=== PATIENT | male | born 1950 | race Caucasian/White ===

== ENCOUNTER → 2017-04-02 | Outpatient (CLI) | payer OTHER ==
[~2017-04-02] VITALS: Ht 180.3 cm; Wt 86.1 kg
[~2017-04-02] MED LIST: ASPIR 8181 MG PO; CENTRUM SILVER1 EAC2 PO; CLONAZEPAM 1 MG1 M1 PO; COUMADIN7.5 MG PO; CYMBALTA60 MG PO; ENOXAPARIN40 MG/0.1 SUBQ; GABAPENTIN100 MG PO; HYDROCODON-ACE1 EAC5 PO; HYDROCODONE-APA1 TA1 PO; LEVOTHYROXIN0.075 MG PO; LIPITOR 20 MG T20 M1 PO; NEURONTIN 300300 M1 PO; NEURONTIN300 MG PO; OXYCODONE HCL E10 MG PO; OXYCODONE-ACET1 EAC2 PO; OXYCONTIN20 M1 PO; PERCOCET 10-321 EACH PO; SINGULAIR 10 MG10 M1 PO; VENTOLIN HFA 1818 GM INH
--- NOTE | ~2017-04-02 | HPC ---
[facility] [address] [place] [address] PAIN MANAGEMENT CONSULTATION Name: CARLOS RAUSCH Room #: REG [place] Burk#: [id number] Admission: 04/02/17 Attend Phys: Lincoln George MD Discharge: Date of : 50 Report #: [id number] THIS REPORT FOR: //name// CC: MORGAN George DATE OF SERVICE: 04/02/2017 Followup visit for chronic intractable neck pain, occipital headaches and bilateral lower extremity pain with burning, numbness and tingling. I last saw the patient exactly 1 year ago today. He had had a couple of epidural injections and facet injections in attempt to treat severe neck pain and occipital headaches. Pain relief was short lived with both injections and he was discharged from our clinic on that day with some medication management recommendations. Much has happened in the interim. In July, after a consultation with Dr. Powell at , the patient underwent surgery. He had an anterior cervical diskectomy and fusion of C3-C4. He recovered from that surgery and felt a little bit better in the first week, but then suffered a pulmonary embolus. He had actually had a vena cava filter placed prior to surgery because of history of deep venous thrombosis and it was removed. After it was removed, he had severe headaches and fell. He was anticoagulated at the time. He had 1 severe leg injury when he tripped at a parking lot. He had to have a plastic surgeon close a severe laceration on the back of his right knee. 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 He was discovered to have had a small cerebral bleed. This was allowed to recover. 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 He says he has actually been riding on a tractor mowing [place]. This is hard on him and he is having pain with these activities. Vena cava filter has been replaced once again. He is becoming more and more debilitated by his pain. He says that he has severe 7/10 pain in his head that radiates from his occiput forward into the frontal region and involves his neck, shoulders and then he hurts all over, mostly in his legs and his back. He says that his legs feel as though they are swollen and achy at all times. His feet burn. He has had some other symptoms in his upper extremities with shakiness, tremor and it has been difficult for him to write due to the tremor. He used to work out on a treadmill, but has stopped doing that and his , Loni, who is with him today says that many days he is just spending lying in bed. He is up and down at night, so he is not getting a good circadian rhythm. This is all limiting his activity more and more. 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 Maldonado. Notes from Dr. Maldonado's office several months ago suggested he has an undefined rheumatologic symptom with diffuse body aches and fatigue and headaches. Medication for treatment has primarily been focused on antidepressants and antiseizure medicines. In the past, he was hyperreflexic and this is noted again today. This will be discussed below. CURRENT MEDICATIONS: Multivitamins, oxycodone 10/325 one tablet at bedtime only, gabapentin 600 mg morning and evening, Coumadin 7.5 mg, levothyroxine 0.075, Singulair 10 mg, clonazepam 1 mg at bedtime, aspirin 81 mg, albuterol. ALLERGIES: None. PAST MEDICAL HISTORY: Significant for hypertension, coronary artery disease status post stent placement. REVIEW OF SYSTEMS: He has some dyspnea on exertion, lightheadedness at times, dizziness, extreme fatigue associated with pain, easy bleeding and bruising. PHYSICAL EXAMINATION: He is pleasant, alert and oriented today. Memory seems to be good. Blood pressure is 113/81, heart rate 67, respirations 14, BMI is 26.5. He is able to move easily from a sitting to standing position, but walks with a stiff gait. There is mild spasticity noted in his gait. His chest is clear. His cardiac rhythm is regular. Examination of the neck reveals decreased range of motion with lateral tilt and rotation. Flexion and extension are performed without too much difficulty. This exacerbates symptoms. He has a small swollen area over the internal jugular where a sheath was recently placed to remove his vena cava filter. Examination of the upper extremities reveals normal strength and sensation. Deep tendon reflexes are 2+ biceps, triceps and brachioradialis. Examination of reflexes in the lower extremity reveals clonus at the knees bilaterally and hyperreflexia at the ankles. There is some hyperalgesia to light touch. No focal weakness. X-RAYS AVAILABLE: None. IMPRESSION: 1. Cervicalgia with occipital headaches, status post act anterior cervical discectomy and fusion. History of cervical spinal stenosis. I believe he is myelopathic with the hyperreflexia noted in the lower extremities, the changes in his fine motor skills in his hands and with mild spasticity noted in his gait. 2. Chronic intractable pain. 3. Status post anterior cervical discectomy and fusion. [facility] [address] [place] [address] PAIN MANAGEMENT CONSULTATION Name: CARLOS RAUSCH Room #: REG [facility].#: [id number] Admission: 04/02/17 Attend Phys: Lincoln George MD Discharge: Date of : 50 Report #: [id number] RECOMMENDATIONS: I spent over 1 hour today in full evaluation with the patient with counseling and consultation regarding medication. I would like to make the following changes: 1. Taper off of gabapentin. 2. Begin Lyrica, increasing from initial dose of 150 and titrating upwards towards 300, perhaps as high as 450 depending on side effects. 3. I believe we should utilize small-dose opioid medication under strict management and with careful instructions. The opioid crisis was addressed thoroughly. The importance of using medications as prescribed by the physician was reviewed as well. He has some oxycodone 10 tablets at home, I would like him to take 5 mg up to 4 times a day. Duration of action of the oxycodone tablet should be somewhere between 4 and 6 hours. 4. Consider occipital nerve blocks for diagnostic purposes. I do not want to put him through any other procedure, but he might be a candidate for occipital stimulation, which I have seen helpful in about 50% of appropriately selected patients. With his coagulopathy I would be careful about any additional procedure at this time and I wanted to try medication management. 5. Follow up in 1 week. By: [id number] Lincoln George MD /nt
[2017-04-02 11:04] VITALS: BP 113/81
[2017-04-02 11:18] LABS: INR 1.3; PROTIME 13.7 Seconds (9.3-11.4)
== END | disposition home or self-care (01) ==
LOC: PAIN 08:26
PROVIDERS: Anesthesiology Pain Medicine
DX: M54.2 Cervicalgia (principal); M54.81 Occipital neuralgia; G89.29 Other chronic pain; I10 Essential (primary) hypertension; I25.10 Atherosclerotic heart disease of native coronary artery without angina pectoris; Z95.5 Presence of coronary angioplasty implant and graft; Z98.890 Other specified postprocedural states; Z79.82 Long term (current) use of aspirin; Z79.899 Other long term (current) drug therapy; Z79.01 Long term (current) use of anticoagulants

== ENCOUNTER → 2017-06-17 | Outpatient (CLI) | payer OTHER ==
[~2017-06-17] VITALS: Ht 180.3 cm; Wt 84.8 kg
[~2017-06-17] MED LIST changes: +LYRICA 50 MG50 MG PO; +LYRICA 75 MG CA75 MG PO; +WARFARIN SODIUM5 MG PO
--- NOTE | ~2017-06-17 | HPC ---
[facility] [address] [address] PAIN MANAGEMENT CONSULTATION Name: CARLOS RAUSCH Room #: REG JOSE Rajesh.#: [id number] Admission: 06/17/17 Attend Phys: Lincoln George MD Discharge: Date of : 50 Report #: [id number] THIS REPORT FOR: //name// CC: Shaji George DATE OF SERVICE: 06/17/2017 Followup visit for chronic neck pain with myelopathy. HISTORY OF PRESENT ILLNESS: The patient is here today in the clinic with his . He is here to discuss his ongoing pain. He looks better, he has been working out. He has gained some weight. He had lost quite a bit. He is walking 80 minutes on the treadmill now. He continues to have a daily headache about 3.5. It is radiating in frontal as well as in his occiput. It is worse when the day goes on and he cannot lay down on a pillow without severe pain. He has had some trigger points, but they do not last. We talked about botox and I am going to talk to Stacey Maria about perhaps performing these for him. MEDICATIONS: Review includes Coumadin, oxycodone, multivitamins, Cymbalta, Singulair, Synthroid, clonazepam, aspirin, and Ventolin. ALLERGIES: None. PHYSICAL EXAMINATION: GENERAL: Looks a lot better, just his eyes looks more hopeful and optimistic. VITAL SIGNS: His blood pressure 103/75, heart rate 78. He is 5 feet 11 inches, 187 pounds with a BMI of 26.1. PQRS REVIEW: He does not smoke. He is on an opioid agreement and understands the opioid crisis, the CDC guidelines and his written agreement. Periodic drug screening will be performed as necessary. His weight is well controlled. He is no longer under treatment for hypertension, but is on a blood thinner. IMPRESSION: 1. Chronic intractable cervicalgia and likely myelopathy. 2. Intractable pain. 3. Management of high risk medication. 4. Depression, much improved. PLAN: I will discuss Botox with Stacey Ortegamez and make a call back to the patient. By: [id number] Lincoln George MD /nt
[2017-06-17 12:39] VITALS: BP 103/75
== END ==
LOC: PAIN 07:12
DX: G89.29 Other chronic pain (principal); M54.2 Cervicalgia; F32.89 Other specified depressive episodes; Z79.899 Other long term (current) drug therapy

== ENCOUNTER → 2017-09-11 | Outpatient (CLI) | payer OTHER ==
[~2017-09-11] VITALS: Ht 180.3 cm; Wt 83.0 kg
[~2017-09-11] MED LIST changes: +CYMBALTA30 MG PO; +VIAGRA50 MG PO
--- NOTE | ~2017-09-11 | HPC ---
[facility] [place] [address] [place] [address] PAIN MANAGEMENT CONSULTATION Name: CARLOS RAUSCH Room #: REG JOSE Rajesh.#: [id number] Admission: 09/11/17 Attend Phys: Lincoln George MD Discharge: Date of : 50 Report #: [id number] THIS REPORT FOR: //name// CC: Shaji George DATE OF SERVICE: 09/11/2017 DATE OF REGISTRATION: 09/11/2017 Followup visit for chronic cervicalgia and myelopathy. The patient returns to pain clinic today for ongoing pain. He is on a combination of Lyrica 75 mg 4 times daily and oxycodone 5 mg 4 times daily. We have decided to change that dose to oxycodone 10 mg 3 times daily, essentially what he can do is to use a full tablet twice a day and split the third tablet to 5 mg. Overall, this will increase his morphine mg equivalency from 30-45 with the additional 10 mg of oxycodone a day. He has had opioid related side effects including endocrinopathy. He asked me about sexual functioning while on medication and also due to his pain. He has tried Viagra, but is unbelievably expensive. I have referred him to a [facility] where he can get generic Viagra for under $50 for 20 tablets. A prescription was written for 20 tablets and refills. He is discouraged by his continuing pain. Intensity of pain is as high as a 6 even on a good day. His impact of pain score is high in the range of 35-40. It interferes evenly with walking mood, normal work, relationships with others, sleep and enjoyment of life. He is at moderate risk for addiction to medications, so we will watch him carefully. Most of it; however, is due to a family history. No personal history of substance abuse or other psychological disorder. I think quite honestly that there is very little risk of addiction and the patient is attentive to that. We have discussed the opioid risks well documented in the [place] [facility] and will remain vigilant. I think he is a candidate for an intrathecal pump and I spent 20 minutes or so today reviewing placement and management. I will discuss this further with him in future visits. I believe he has some degree of spasticity based on his physical exam features. PHYSICAL EXAMINATION: Moves from a sitting to standing position, ambulates with a bit of a rigid gait. He has ongoing pain in his neck with forward flexion, extension and rotation. He has pain across his low back. Straight leg raising causes aching sensation and throbbing. Deep tendon reflexes in the lower extremity are 3-4+ with 2 beats of clonus noted in the right leg. [facility] [address] [place] [address] PAIN MANAGEMENT CONSULTATION Name: CARLOS RAUSCH Room #: REG JOSE Burk#: [id number] Admission: 09/11/17 Attend Phys: Lincoln George MD Discharge: Date of : 50 Report #: [id number] IMPRESSION: Cervicalgia with myelopathy. RECOMMENDATION: Continue on his medications as prescribed and consider intrathecal pump in the future. I will share his story with Dr. Uriah Guadalupe who I will ask to assist with placement of intrathecal pump should we need to do so. I have reviewed all his medications and he remains on a blood thinner because of DVT. We would have to work carefully around that if we decided to place an intrathecal pump. Total time with the patient is 35 minutes. <ELECTRONICALLY SIGNED> By: Lincoln George MD 10/07/17 1408 [id number] 14 Lincoln George MD /nt
[2017-09-11 13:07] VITALS: BP 147/97
== END ==
LOC: PAIN 07:10
DX: M54.2 Cervicalgia (principal); M79.1 Myalgia; G89.29 Other chronic pain

== ENCOUNTER → 2017-12-23 | Outpatient (CLI) | payer OTHER ==
[~2017-12-23] VITALS: Ht 180.3 cm; Wt 85.3 kg
[~2017-12-23] MED LIST changes: -CYMBALTA30 MG PO
--- NOTE | ~2017-12-23 | HPC ---
[facility] [address] [place] [address] PAIN MANAGEMENT CONSULTATION Name: CARLOS RAUSCH Room #: REG JOSE Rajesh.#: [id number] Admission: 12/23/17 Attend Phys: Lincoln George MD Discharge: Date of : 50 Report #: [id number] THIS REPORT FOR: //name// CC: Shaji George DATE OF SERVICE: 12/23/2017 DATE OF REGISTRATION: 12/23/2017 Followup visit for diffuse pain. The patient is here today in the clinic with his , Radha. I spent about 25 minutes with them today discussing his symptoms, diagnosis and treatment. I had previously discussed his case over the phone with Dr. Shaji Maldonado. The patient continues to have what he describes as "pain all over." He describes discomfort in his neck, shoulders pain that radiates into his arms with a constant, aching, throbbing sensation. He has some discomfort throughout the torso as well that is diffuse and throbbing and then below the waist he has bilateral leg pain radiating into his feet with burning. He describes his pain intensity is 7, it worsens as the day goes on. It is made worse with most activities. Several months ago, he was nearly bedfast. He developed a blood clots and pulmonary embolus, was started on anticoagulation therapy. We have also encouraged activity by increasing the use of stronger pain medication, which he takes reluctantly, but gratefully. It does provide some measure of relief and allows him to be more active. We discussed his diagnosis. I reviewed the available studies that we have and my last MRI was from November 2015 showing diffuse spondylosis. At that time, he had moderate to severe canal stenosis at C3-C4 and there was no intrinsic cord signal or change. I have, however, been concerned over the years that he has had progressive pain related to myelopathy given the widespread nature of his pain and neuropathic burning complaints. Further exploring diagnosis and interesting piece of information that I had not obtained in previous visits was volunteered today about his daughter. Several years ago, she had similar diffuse body aches and pains. She was seen by multiple physicians throughout the [place] area and was given the diagnosis of Lyme's disease. She was seen at the [facility] where the diagnosis was of a functional nature. The patient pointed to his head when he described their diagnosis implicating psychological issues as the underlying cause. [facility] [address] [place] [address] PAIN MANAGEMENT CONSULTATION Name: ENGLISHCARLOS Vanesa Room #: REG JOSE Burk#: [id number] Admission: 12/23/17 Attend Phys: Lincoln George MD Discharge: Date of : 50 Report #: [id number] They then sought out a physician under recommendation from a friend located in [place], [place]. With some desperation, they took their 18-year-old daughter to see him, what sounds as though she underwent some sort of plasmapheresis circulation therapy. Remarkably, she recovered and they described her as nearly normal today. Well, I am not saying that the patient is suffering the same etiology, I find it curious that her father is suffering from similar diffuse pain. Could this be Lyme's disease or some sort of systemic disease rather than myelopathy? I have suggested the [facility] Neurology Department for another opinion, but given their poor experience previously, they were a bit reluctant to consider that option. After some discussion about the testing that could be performed in the tertiary center, I think they have agreed that they may once again take a trip to [place], [place]. I will try to help and arrange an entry into the clinic with my friend, Dr. Johny Franklin in the Department of Pulmonary Medicine who can then help get the patient into appropriate consultants for a complete workup. A final discussion centered around his symptoms and symptom management which followed a physical exam. PHYSICAL EXAMINATION: GENERAL: He is a bit flat of affect. His voice is stronger, still a bit hesitant. HEENT: Reveals pupils to be equal, round, reactive to light. EOMs are intact. NECK: His neck range of motion is limited from previous surgery. He has tenderness posteriorly. CARDIAC: Rhythm is regular. CHEST: Clear. MUSCULOSKELETAL EXAMINATION: Reveals mild diffuse myofascial tenderness and some arthralgias of the shoulder and tenderness of the elbows bilaterally. He has tenderness also of the legs. Sensation to pinprick is intact. Deep tendon reflexes are 2+ in the upper extremities and symmetrical right to left and he remains hyporeflexic in the lower extremities with knee jerk reflexes at 3, ankle jerk reflexes 2-3+. IMPRESSION: 1. Chronic intractable pain of a diffuse nature, possibly myelopathy. 2. Management of high risk medications. PLAN: 1. Continue with Dr. Maldonado's plan to increase his Cymbalta to 120 mg as discussed over the phone. 2. Continue oxycodone 10/325 three times daily, this is an MME of 45. 3. Continue Lyrica 75 mg t.i.d. [facility] [address] [place] [address] PAIN MANAGEMENT CONSULTATION Name: CARLOS RAUSCH Room #: MIR Mena.#: [id number] Admission: 12/23/17 Attend Phys: Lincoln George MD Discharge: Date of : 50 Report #: [id number] 4. Follow up in the pain clinic in 2 months. I will make a call to the [facility] to arrange for his possible consultation there. By: [id number] Lincoln George MD /nt
[2017-12-23 13:59] VITALS: BP 118/85
== END ==
LOC: PAIN 06:44
DX: Z09 Encounter for follow-up examination after completed treatment for conditions other than malignant neoplasm (principal); G89.4 Chronic pain syndrome; Z79.899 Other long term (current) drug therapy

== ENCOUNTER → 2018-04-01 | Outpatient (CLI) | payer OTHER ==
[~2018-04-01] VITALS: Ht 180.3 cm; Wt 84.8 kg
[~2018-04-01] MED LIST changes: +CYMBALTA30 MG PO
--- NOTE | ~2018-04-01 | HPC ---
[facility] [address] [address] PAIN MANAGEMENT CONSULTATION Name: CARLOS RAUSCH Room #: REG JOSE Bhargavi#: [id number] Admission: 04/01/18 Attend Phys: Lincoln George MD Discharge: Date of : 50 Report #: [id number] THIS REPORT FOR: //name// CC: [facility] Lincoln George DATE OF SERVICE: 04/01/2018 Followup visit for chronic intractable pain. The patient is here today with his , Mely. When I last saw him on 12/23/2017, we had discussed the possibility of a second opinion. We talked about the [facility] Department of Neurology and I offered to refer him there. He also sought out a physician from a friend located in [place], [place] and received nearly [address] [facility] in [place]. While there, there was an effort to taper him off of his current medications, which I support and he also received prolotherapy along his neck. He feels that this has improved his pain. His pain intensity is reduced today at a level of 2 when I last saw him. His pain intensity was 7. Overall, he just looks better. He has had a slight tremor in his voices, had a slight waiver. He has had a look in his eye that suggests a sense of hopelessness. He seems more positive today. I reviewed my notes from last visit and compared my impressions from today with before. He is more flat in his affect at last visit. One of the questions that arose was his low testosterone level. He is 67 years of age and the course testosterone will naturally be lower. We also know, however, that medications that he is taking can also lower testosterone, particularly the opioids. We talked about testosterone replacement which I usually do not order, but I am willing to do so and I will seek out the appropriate initiating dose for him and the appropriate and best choice for supplement. I noted that there are injections, creams and patches. Since I do not typically prescribe them, I will need to do some homework before I do that and they were happy with that. They have not established with a new primary care physician since Dr. Maldonado retired a few months ago. Since Dr. Lopez's prolotherapy seems to have helped the patient's neck, they asked me about prolotherapy which I do not perform. I am well familiar with the technique and have done some research on that topic. It has some controversy in today's health care and I know there has been some reimbursement reluctance by third constitution party payers, but that certainly it does not define a procedure in this day and age. Insurance companies are reluctant to pay for just about anything. The longest practicing physician in [place] that I am aware of who has been a strong devotee of prolotherapy is Dr. Wicho Shipman, who I believe is still practicing in [facility]. I provided them with his number and they [facility] [address] [address] PAIN MANAGEMENT CONSULTATION Name: CARLOS RAUSCH Room #: REG JOSE Burk#: [id number] Admission: 04/01/18 Attend Phys: Lincoln George MD Discharge: Date of : 50 Report #: [id number] can certainly pursue a consultation with Dr. Shipman. 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 PHYSICAL EXAMINATION: Again, I think he looks better. His eyes are less anxious. His affect not as flat as before. He was more energetic. He smiled more during his visit today. His blood pressure is 118/85, heart rate 63, respirations 16. His BMI is nearly identical at 26.2, but his muscle mass seems better just with general observation. Color of the face is good. Still has some restrictions in the range of motion of his neck, but his voice is stronger and he has less of a tremor. He continues to have some decreased sensation in the lower extremities consistent with neuropathy/myelopathy. He has 2 cardiac stents as well and remains on Coumadin. All medications were reviewed and reconciled. We talked about tapering him at some point from Cymbalta. We will keep him on Lyrica 75 mg 3 times daily, at a slight reduction. He is tapering his oxycodone from a maximum of 30 mg a day, taken 3 times daily to 2 tablets of 10 and one half a tablet for a total of 25 mg a day or roughly 37 MME. I renewed his medications needed to carry him through the next month or two. I will be in contact by phone regarding his testosterone and the prolotherapy if there are others. They are also performed locally in [place]. By: [id number] Lincoln George MD /nt
[2018-04-01 11:08] VITALS: BP 116/79
== END ==
LOC: PAIN 06:55
DX: G89.4 Chronic pain syndrome (principal); M17.12 Unilateral primary osteoarthritis, left knee; Z72.89 Other problems related to lifestyle; Z79.899 Other long term (current) drug therapy

== ENCOUNTER → 2018-09-11 | Outpatient (CLI) | payer OTHER ==
[~2018-09-11] VITALS: Ht 180.3 cm; Wt 79.8 kg
[~2018-09-11] MED LIST changes: +CRESTOR10 MG PO
[2018-09-11 12:32] VITALS: BP 132/87
--- NOTE | 2018-09-11 12:39 | NUR ---
Pain Clinic Assessment: 1. History of Osteoarthritis: Left Lower Extremity History of Rheumatoid Arthritis: Not Applicable 2. Height: 5 ft. 11 in. 180.3 cm. Weight: 176.0 lb. oz. 79.833 kg. Patient's BMI: 24.6 3. Vital Signs: BP: 132/87 Pulse: 64 Resp: 16 Temp: 02 Sat: 99 ECG Mon: 4. Pain Intensity: 6 5. Fall Risk: Dizziness: N Needs help standing or walking: N Fallen in the last 3 months: Y Fall risk comments: 6. Patient on Blood Thinner: Warfarin (Coumadin) 7. History of Hypertension: N 8. Opioid Therapy greater than 6 weeks: Y Opiate Contract Signed: 09/11/17 9. Risk Assessment Tool Provided: 10-high 10. Functional Assessment Tool: 11. Recreational Drug Use: Never Drug Type: Tobacco Use: Never Smoker Tobacco Type: Amount or Packs/day: How Many Years: Alcohol Use: Yes Frequency: Special Occasions Quant:
--- NOTE | 2018-09-12 07:40 | HPC ---
[facility] [address] [place] [address] PAIN MANAGEMENT CONSULTATION Name: CARLOS RAUSCH Room #: REG [facility] Burk#: [id number] Admission: 09/11/18 ������������������ Attend Phys: Ashley Kaur Discharge: ������������������ Date of : 50 Report #: [id number] THIS REPORT FOR: //name// CC: Ashley Kaur [facility] DATE OF SERVICE: 09/11/2018 CHIEF COMPLAINT: Chronic intractable pain. HISTORY OF PRESENT ILLNESS: The patient returns to the pain clinic today. Our last visit with him was in March of 2018. He tells me that he has been able to decrease lot of his medicines that we had had him on and was doing fairly well until 2 weeks ago. He started having increasing headaches starting at the base of his neck, radiating towards the front of his head up his occipital area and even feels the pressure behind his eyes, tells me that he does have some pain that does go into his shoulders as well. His pain score today is 6/10. At that time, he started taking 15 mg of oxycodone that he had had from when we last saw him and he said it was able to help him sleep at night. He said he can manage during the day and then, his pain becomes so intense that he was not being able to sleep but this medicine has made him sleep better at night and then be able to function during the day. He would like a refill of his oxycodone. He tells me he does not need the Cymbalta or the Lyrica or the AndroGel. He had weaned himself off of those and did not think that they were very beneficial. He also tells me that he did fall in early August and had a fractured hip that has healed on its own. No surgery was required. Otherwise, he has had no changes in his medication history or medical history. ALLERGIES: no allergies. CURRENT MEDICATIONS: Oxycodone 10/325 one and half bedtime; Viagra as needed; Coumadin 5 mg daily, sliding scale of that based on INR; multivitamin daily; Singulair 10 mg daily; Synthroid 75 mcg daily; clonazepam 1 mg at bedtime; 81 mg aspirin and albuterol inhaler as needed. PQRS: 1. He has osteoarthritis in his lower extremities, hips and his neck. Denies rheumatoid arthritis. 2. Height 5 feet 11 inches, weight is 176 and BMI is 24. 3. Vital signs: Blood pressure 132/87, pulse is 64, respirations 16 and oxygen sat is 99. 4. Pain score 6/10. 5. Fall risk. Denies dizziness, does not need help, walking or standing, has fallen in the last 3 months and has sought out medical care. 6. The patient is on blood thinner of Coumadin. He denies any blood pressure medicines. [address] [address] PAIN MANAGEMENT CONSULTATION Name: ENGLISHCARLOS BRAN Room #: REG [facility] Bhargavi#: [id number] Admission: 09/11/18 ������������������ Attend Phys: Ashley Kaur Discharge: ������������������ Date of : 50 Report #: [id number] 7. Opioid therapy is greater than 6 weeks; therefore, an opioid signed contract is on the chart. 8. His risk assessment tool is high and his functional assessment is 40/70. 9. Recreational drug use, he denies. He is not a smoker and occasionally drinks alcohol. We did check the prescription monitoring system. The patient is filling medicines from his primary care doctor for his clonazepam and oxycodone most recently. No medications from our office since our last visit last fall. PHYSICAL EXAMINATION GENERAL: This is alert and orientated 68-year-old gentleman who appears his stated age or slightly younger. He is alert and orientated. His affect is appropriate. HEENT: Normocephalic and atraumatic. Extraocular eye muscles are intact. Mucous membranes are moist. His hearing is adequate. NECK: Complains of pain with range of motion that radiates from the shoulders that radiates through his occipital area into his forehead, tender to the touch at the base of his neck with some restrictions in his range of motion. MUSCULOSKELETAL: His general muscle strength is judged to be 5/5 in both upper and lower extremities in all groups. The patient walks with a normal gait. No tremors noted today in his voice. We reviewed the fact that opiate medications are being used to provide analgesia adequate to support activities of daily living, not attempting to achieve a specific pain score on the 0-10 Visual Analog Scale. The current opiate medications are providing sufficient analgesia to allow the patient to participate in activities of daily living. The patient is not exhibiting any aberrant behavior suggestive of drug diversion. The patient is not having any adverse reactions to medications. The patient is not suffering from daytime somnolence or mental acuity changes. The patient is managing opiate-induced constipation with appropriate yxri-qrl-vubdnuq agents and dietary considerations. The patient was counseled on concern for caution with operating a motor vehicle while using opiate medications. A physical exam was performed and the patient's functional status was evaluated. All patients with back pain were advised against the bed rest greater than 4 days and were advised to return to normal activities. Pain score assessment was noted and the treatment plan was reviewed with the patient. All current medications, both prescribed and OTC were reviewed and reconciled on the electronic medical record. Tobacco screening was accomplished and smoking cessation was advised when indicated. BMI was noted and diet/exercise modification was recommended for all patients following outside normal parameters. I reviewed with the patient today their responsibilities to safeguard prescription medications, reviewed their responsibility to utilize medications [facility] [address] [place] [address] PAIN MANAGEMENT CONSULTATION Name: ENGLISHCARLOS SOTOMAYOR Room #: REG [facility] M.Jahaira.#: [id number] Admission: 09/11/18 ������������������ Attend Phys: Ashley Kaur Discharge: ������������������ Date of : 50 Report #: [id number] only as prescribed by the physician. They are to seek and receive pain medications only from 1 physician group ( [facility]). They are to use 1 pharmacy and keep the clinic informed if they change pharmacies. Their responsibilities include making followup visits in a timely fashion and to avoid abrupt discontinuation of medication usage. Their responsibilities further include bringing their medications (bottles from the pharmacy with residual pills) to the visit for possible confirmation of pill counts and the patient understands it is their responsibility to submit to random drug screens to ensure both that the medications prescribed are present, and that no other controlled substances are present. All prescriptions provided today were generated electronically. ASSESSMENT: 1. Chronic intractable pain, neck pain. 2. Cervical neuralgia with myelopathy. PLAN: 1. We discussed treatment options with the patient today. The patient wishes to have a prescription of his oxycodone, which he had received in the past from us. He is currently taking 1-1/2 tablets of the 10 mg a day. We discussed lowest most effective dose. The patient will try to take less medicine and see how he does. He has not even tried the lower dose and he started at 1-1/2. This was able to afford him sleep, so he stayed on that dose for the past couple of weeks. The patient tells me that he will try half a pill and then one a pill or one and half pills but no more than one and half per night. Scripts given for oxycodone , #90. This may last the patient 1-2 months depending on how he is taking it. 2. The patient will be seen by Dr. George when he is running low on the medications and he will call for an appointment in a timely fashion. 3. The patient is seen with Dr. George and collaboration with his care today. ��������������������������������������������� <ELECTRONICALLY SIGNED> ���������������������������������������� By: Ashley Kaur ��������������������������������������������� 09/12/18 0740 [id number] Ashley Kaur /pierce
== END ==
LOC: PAIN 07:00
DX: M50.00 Cervical disc disorder with myelopathy, unspecified cervical region (principal); G89.4 Chronic pain syndrome; Z79.899 Other long term (current) drug therapy

== ENCOUNTER → 2018-12-16 | Outpatient (CLI) | payer OTHER ==
[~2018-12-16] VITALS: Ht 180.3 cm; Wt 84.9 kg
[2018-12-16 14:33] VITALS: BP 124/88
--- NOTE | 2018-12-16 14:40 | NUR ---
Pain Clinic Assessment: 1. History of Osteoarthritis: Left Lower Extremity History of Rheumatoid Arthritis: Not Applicable 2. Height: 5 ft. 11 in. 180.3 cm. Weight: 187.2 lb. oz. 84.913 kg. Patient's BMI: 26.1 3. Vital Signs: BP: 124/88 Pulse: 59 Resp: 14 Temp: 02 Sat: 96 ECG Mon: 4. Pain Intensity: 8 5. Fall Risk: Dizziness: N Needs help standing or walking: N Fallen in the last 3 months: N Fall risk comments: 6. Patient on Blood Thinner: Warfarin (Coumadin) 7. History of Hypertension: N 8. Opioid Therapy greater than 6 weeks: Y Opiate Contract Signed: 09/11/17 9. Risk Assessment Tool Provided: 10-high 10. Functional Assessment Tool: 11. Recreational Drug Use: Never Drug Type: Tobacco Use: Never Smoker Tobacco Type: Amount or Packs/day: How Many Years: Alcohol Use: Yes Frequency: Monthly Quant: 1-2
--- NOTE | 2018-12-17 15:06 | HPC ---
[facility] [address] [place] [address] PAIN MANAGEMENT CONSULTATION Name: CARLOS RAUSCH Room #: REG [facility]SE Burk#: [id number] Admission: 12/16/18 ������������������ Attend Phys: Ashley Kaur Discharge: ������������������ Date of : 50 Report #: [id number] THIS REPORT FOR: //name// CC: Ashley Kaur [facility] DATE OF SERVICE: 12/16/2018 CHIEF COMPLAINT: Chronic intractable pain. HISTORY OF PRESENT ILLNESS: This is a very pleasant 68-year-old gentleman who returns to the pain clinic today for refill of his medication that he uses to take for his ongoing headaches. He tells me that the headaches are mostly at the base of his neck that radiate towards his occipital area up behind his eyes. He also has pain in his bilateral shoulders and arms. His pain score today is an 8/10. He feels that it is a fairly average pain score. He does take 1 oxycodone at bedtime that does help him sleep and able to function better in the morning since his pain is less at that time. He feels when he takes it during the day it does not really help him improve with his daily life. He feels no significant change then, so he would rather not take the pain meds at that time. The patient tells me he has had several things including injections and acupuncture from a doctor in [place], but those were not helpful long-term in controlling his pain. ALLERGIES: No known drug allergies. CURRENT LIST OF MEDICATIONS: Oxycodone 10/325 three times at bedtime, Crestor, Coumadin, multivitamin, Singulair, Synthroid, clonazepam, aspirin, albuterol inhaler as needed. PQRS: 1. The patient has osteoarthritis in his lower extremities, hips and his neck. Denies any rheumatoid arthritis. 2. 5 feet 11 inch, weight is 187, BMI is 26. 3. Vital signs: Blood pressure 124/88, pulse is 59, respirations 14, oxygen sat is 96. 4. Pain score is 8/10. 5. Fall risk: Denies dizziness. Does not need help with walking or standing. He has not fallen in the last 3 months. 6. The patient is on Coumadin. He does not take medicines for hypertension. 7. Opioid therapy is greater than 6 weeks; therefore an opioid signed contract is on the chart. His risk assessment tool is high. His functional assessment is 40/70. 8. Recreational drug use, he denies. He is not a smoker. Occasionally drinks alcohol. [address] [address] PAIN MANAGEMENT CONSULTATION Name: CARLOS RAUSCH Room #: REG [facility]#: [id number] Admission: 12/16/18 ������������������ Attend Phys: Ashley Kaur Discharge: ������������������ Date of : 50 Report #: [id number] According to the prescription monitoring system, the patient is filling appropriately for his medications and safeguards them at all times. PHYSICAL EXAMINATION GENERAL: This is alert and orientated 68-year-old gentleman who appears his stated age, placing his current pain score today at 8/10. His affect is appropriate. HEENT: Normocephalic, atraumatic. Extraocular eye muscles are intact. Mucous membranes are moist. Hearing is adequate. NECK: Complains of pain with range of motion of rotation and flexion and extension. Pain radiates from the occipital area towards the top of his head. It is tender to touch at the base of his neck. MUSCULOSKELETAL: General muscle strength judged to be 5/5 in upper and lower extremities. We reviewed the fact that opiate medications are being used to provide analgesia adequate to support activities of daily living, not attempting to achieve a specific pain score on the 0-10 Visual Analog Scale. The current opiate medications are providing sufficient analgesia to allow the patient to participate in activities of daily living. The patient is not exhibiting any aberrant behavior suggestive of drug diversion. The patient is not having any adverse reactions to medications. The patient is not suffering from daytime somnolence or mental acuity changes. The patient is managing opiate-induced constipation with appropriate qcyv-dyz-zbsmmso agents and dietary considerations. The patient was counseled on concern for caution with operating a motor vehicle while using opiate medications. A physical exam was performed and the patient's functional status was evaluated. All patients with back pain were advised against the bed rest greater than 4 days and were advised to return to normal activities. Pain score assessment was noted and the treatment plan was reviewed with the patient. All current medications, both prescribed and OTC were reviewed and reconciled on the electronic medical record. Tobacco screening was accomplished and smoking cessation was advised when indicated. BMI was noted and diet/exercise modification was recommended for all patients following outside normal parameters. I reviewed with the patient today their responsibilities to safeguard prescription medications, reviewed their responsibility to utilize medications only as prescribed by the physician. They are to seek and receive pain medications only from 1 physician group ([facility]). They are to use 1 pharmacy and keep the clinic informed if they change pharmacies. Their responsibilities include making followup visits in a timely fashion and to avoid abrupt discontinuation of medication usage. Their responsibilities further include bringing their medications (bottles from the pharmacy with residual [facility] [address] [place] [address] PAIN MANAGEMENT CONSULTATION Name: CARLOS RAUSCH Room #: REG CLI Rajesh#: [id number] Admission: 12/16/18 ������������������ Attend Phys: Ashley Kaur Discharge: ������������������ Date of : 50 Report #: [id number] pills) to the visit for possible confirmation of pill counts and the patient understands it is their responsibility to submit to random drug screens to ensure both that the medications prescribed are present, and that no other controlled substances are present. All prescriptions provided today were generated electronically. ASSESSMENT: 1. Chronic intractable pain, neck pain. 2. Cervical neuralgia with myelopathy. PLAN: 1. We discussed treatment options with the patient today. The patient feels that taking one oxycodone at bedtime has been helpful in allowing him to sleep and able to function in the first part of the day better. He does not find increased efficacy when he takes it during the daytime, so he keeps his use to one tablet a day. 2. The patient had taken AndroGel in the past due to his low testosterone levels. He did not like the use of that medication, hopeful that he could have it as an injection, so then he did not have to worry about being around his and grandchildren. I encouraged him to contact his primary care doctor to discuss those injections. He does have a recent lab that shows a low level of 2.7 for his free testosterone. The patient verbalizes understanding. He states his primary doctor just retired, but he does see one of his partners. 3. The patient will return in 3 months' time period for his medications. The patient is seen in the collaboration today of Dr. Lincoln George. ��������������������������������������������� <ELECTRONICALLY SIGNED> ���������������������������������������� By: Ashley Kaur ��������������������������������������������� 12/17/18 1506 [id number] Ashley Kaur /nt
== END ==
LOC: PAIN 07:01
DX: M54.2 Cervicalgia (principal); G89.29 Other chronic pain; G95.89 Other specified diseases of spinal cord; Z79.899 Other long term (current) drug therapy

== ENCOUNTER → 2019-03-16 | Outpatient (CLI) | payer OTHER ==
[~2019-03-16] VITALS: Ht 180.3 cm; Wt 84.2 kg
[2019-03-16 14:19] VITALS: BP 117/80
--- NOTE | 2019-03-16 14:38 | NUR ---
Pain Clinic Assessment: 1. History of Osteoarthritis: Left Lower Extremity History of Rheumatoid Arthritis: Not Applicable 2. Height: 5 ft. 11 in. 180.3 cm. Weight: 185.6 lb. oz. 84.188 kg. Patient's BMI: 25.9 3. Vital Signs: BP: 117/80 Pulse: 64 Resp: 14 Temp: 02 Sat: 100 ECG Mon: 4. Pain Intensity: 6-7 5. Fall Risk: Dizziness: N Needs help standing or walking: N Fallen in the last 3 months: N Fall risk comments: 6. Patient on Blood Thinner: Warfarin (Coumadin) 7. History of Hypertension: N 8. Opioid Therapy greater than 6 weeks: Y Opiate Contract Signed: 09/11/17 9. Risk Assessment Tool Provided: 10-high 10. Functional Assessment Tool: 11. Recreational Drug Use: Never Drug Type: Tobacco Use: Never Smoker Tobacco Type: Amount or Packs/day: How Many Years: Alcohol Use: Yes Frequency: Quant:
--- NOTE | 2019-03-17 07:59 | HPC ---
[facility] [address] [place] [address] PAIN MANAGEMENT CONSULTATION Name: CARLOS RAUSCH Room #: REG [facility]#: [id number] Admission: 03/16/19 ������������������ Attend Phys: Ashley Kaur Discharge: ������������������ Date of : 50 Report #: [id number] THIS REPORT FOR: //name// CC: [facility] DATE OF SERVICE: 03/16/2019 CHIEF COMPLAINT: Chronic intractable pain. HISTORY OF PRESENT ILLNESS: This is a very pleasant 68-year-old gentleman who returns to the pain clinic today for refill of his medications that he uses to help treat his ongoing headaches that are in base of his neck that radiate into his occipital area. He finds the oxycodone very beneficial in controlling his pain and allowing him to sleep better at night, which helps him have decreased pain throughout the day. Today, he rates his pain score at 6 to 7. It is a sharp, achy pain. It is worse with prolonged sitting and standing and activity. Again, his medications are very beneficial. I did question the patient regarding the AndroGel testosterone level that we had discussed last visit. He tells me that his primary care doctor has drawn some blood, but he has not heard of the results of his lab work at this time. The patient also tells me today that he is experiencing a chest cold and a sore throat that started on Saturday. He is wondering if we were able to give him antibiotics to help with this since he is going out of town in the next couple of days. ALLERGIES: No known drug allergies. CURRENT LIST OF MEDICATIONS: Oxycodone 10/325 one at bedtime, Crestor 10 mg daily, Coumadin 6 to 7 mg at bedtime, multivitamin, Singulair, Synthroid, clonazepam, aspirin and albuterol inhaler. PQRS: 1. He has osteoarthritis in his lower extremities. He denies any rheumatoid arthritis. 2. Height is 5 feet 11 inches, weight is 185, BMI is 25. 3. Vital signs: 117/80, pulse is 64, respirations 14, oxygen sat is 100. 4. Pain score is 6 to 7. 5. Denies dizziness, does not need help walking or standing, has not fallen in the last 3 months. 6. The patient is on Coumadin and does not take medicine for hypertension. 7. His opioid therapy is greater than 6 weeks; therefore, an opioid signed contract is on the chart. 8. Risk assessment is high. Functional assessment is 40/70. [address] [address] PAIN MANAGEMENT CONSULTATION Name: CARLOS RAUSCH [id number] Admission: 03/16/19 ������������������ Attend Phys: Ashley Kaur Discharge: ������������������ Date of : 50 Report #: [id number] 9. Recreational drug use, he denies. He is not a smoker and occasionally drinks alcohol. 10. According to the prescription monitoring system, the patient is filling appropriately for his medications in a timely fashion. PHYSICAL EXAMINATION: GENERAL: This is a well-developed, well-nourished, well-hydrated 68-year-old male who appears his stated age, placing his current pain score at 6 to 7 today. HEENT: Normocephalic, atraumatic. Extraocular eye muscles are intact. Mucous membranes are moist. NECK: Pain radiates from his occipital area towards the top of his head. It is tender to touch at the base of his neck. He has pain with flexion and extension and rotation of his neck. MUSCULOSKELETAL: Generalized muscle strength judged to be 5/5 in all upper and lower extremities. CHEST: The patient has a nonproductive cough present today. We reviewed the fact that opiate medications are being used to provide analgesia adequate to support activities of daily living, not attempting to achieve a specific pain score on the 0-10 Visual Analog Scale. The current opiate medications are providing sufficient analgesia to allow the patient to participate in activities of daily living. The patient is not exhibiting any aberrant behavior suggestive of drug diversion. The patient is not having any adverse reactions to medications. The patient is not suffering from daytime somnolence or mental acuity changes. The patient is managing opiate-induced constipation with appropriate kyhq-zah-nuocdhk agents and dietary considerations. The patient was counseled on concern for caution with operating a motor vehicle while using opiate medications. A physical exam was performed and the patient's functional status was evaluated. All patients with back pain were advised against the bed rest greater than 4 days and were advised to return to normal activities. Pain score assessment was noted and the treatment plan was reviewed with the patient. All current medications, both prescribed and OTC were reviewed and reconciled on the electronic medical record. Tobacco screening was accomplished and smoking cessation was advised when indicated. BMI was noted and diet/exercise modification was recommended for all patients following outside normal parameters. I reviewed with the patient today their responsibilities to safeguard prescription medications, reviewed their responsibility to utilize medications only as prescribed by the physician. They are to seek and receive pain medications only from 1 physician group ( [facility]). They are to use 1 pharmacy and keep the clinic informed if they change pharmacies. Their responsibilities include making followup visits in a timely fashion and to avoid abrupt discontinuation of medication usage. Their responsibilities further [address] [address] PAIN MANAGEMENT CONSULTATION Name: CARLOS RAUSCH [facility] [id number] Admission: 03/16/19 ������������������ Attend Phys: Ashley Kaur Discharge: ������������������ Date of : 50 Report #: [id number] include bringing their medications (bottles from the pharmacy with residual pills) to the visit for possible confirmation of pill counts and the patient understands it is their responsibility to submit to random drug screens to ensure both that the medications prescribed are present, and that no other controlled substances are present. All prescriptions provided today were generated electronically. ASSESSMENT: 1. Chronic intractable pain, neck pain. 2. Cervical neuralgia with myelopathy. 3. Complex medical management under terms of written opioid agreement. PLAN: 1. We discussed treatment options with the patient today. The patient finds his oxycodone 10/325 very beneficial in helping him sleep and function throughout the day with less of a headache. If he is able to sleep better, he would like a refill of this medication. Scripts given today for oxycodone 10/325, #90. This is a 3-month supply for this patient. This also places him at 15 morphine mEq, well below the CDC guidelines. 2. The patient did request antibiotics for a chest cold. Dr. George did see the patient as well today, and we encouraged the patient to take decongestants and antihistamines as it is not the practice of our clinic to give antibiotics. We encouraged him if he did develop a fever, then to contact his primary care office or to go to an urgent care. The patient verbalizes understanding. 3.Again, the patient was seen under collaboration with Dr. Lincoln George who did see the patient today. The patient will follow up in 3 months' time. ��������������������������������������������� <ELECTRONICALLY SIGNED> ���������������������������������������� By: Ashley Kaur ��������������������������������������������� 03/17/19 0759 1515 0102 Ashley Kaur /nt
== END ==
LOC: PAIN 07:00
DX: G89.4 Chronic pain syndrome (principal); M54.2 Cervicalgia; Z79.891 Long term (current) use of opiate analgesic

== ENCOUNTER → 2019-06-15 | Outpatient (CLI) | payer OTHER ==
[~2019-06-15] VITALS: Ht 180.3 cm; Wt 86.5 kg
[~2019-06-15] MED LIST changes: +ANDROGEL75 GM TRANSDERM; +NEURONTIN100 MG PO
[2019-06-15 11:01] VITALS: BP 120/73
--- NOTE | 2019-06-15 11:20 | NUR ---
Pain Clinic Assessment: 1. History of Osteoarthritis: Left Lower Extremity History of Rheumatoid Arthritis: Not Applicable 2. Height: 5 ft. 11 in. 180.3 cm. Weight: 190.6 lb. oz. 86.456 kg. Patient's BMI: 26.6 3. Vital Signs: BP: 120/73 Pulse: 60 Resp: 14 Temp: 02 Sat: 100 ECG Mon: 4. Pain Intensity: 8 5. Fall Risk: Dizziness: N Needs help standing or walking: N Fallen in the last 3 months: N Fall risk comments: 6. Patient on Blood Thinner: Warfarin (Coumadin) 7. History of Hypertension: N 8. Opioid Therapy greater than 6 weeks: Y Opiate Contract Signed: 09/11/17 9. Risk Assessment Tool Provided: 10-high 10. Functional Assessment Tool: 11. Recreational Drug Use: Never Drug Type: Tobacco Use: Never Smoker Tobacco Type: Amount or Packs/day: How Many Years: Alcohol Use: Yes Frequency: Monthly Quant: "casual"
--- NOTE | 2019-06-16 08:04 | HPC ---
[facility] [address] [place] [address] PAIN MANAGEMENT CONSULTATION Name: CARLOS RAUSCH Room #: REG JOSE Bhargavi#: [id number] Admission: 06/15/19 Attend Phys: Ashley Kaur Discharge: Date of : 50 Report #: [id number] THIS REPORT FOR: //name// CC: Ashley George MD DATE OF SERVICE: 06/15/2019 CHIEF COMPLAINT: Chronic intractable pain. HISTORY OF PRESENT ILLNESS: This is a 69-year-old gentleman who returns to the pain clinic today with multiple pain generator complaints. He is normally being treated for neck pain that does radiate into his occipital area through his head to his temporal area causing significant headaches, also has numbness and tingling in his shoulders and arms. Today, he is also complaining of low back pain as well as numbness and tingling in his feet and states that all of his joints are tender as well. He feels that his pain score is 8/10 and has been like this for the last few weeks. He is wondering about possible options. He has seen a spinal cord stimulator brochure in our waiting room and is wondering if that is a treatment that might be helpful for him. The patient does report he has restarted his gabapentin that he had taken previous. He is taking 300 mg 3 times a day and has just started his AndroGel that he has been prescribed a while ago, but has not started until today. The patient does report that his pain is an aching, sharp, constant pain. 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 His medications are helpful, though he takes most of his opioid medications prior to sleep and feels like he is sleeping well. He denies any problems with constipation from his medicines. ALLERGIES: No known drug allergies. CURRENT LIST OF MEDICATIONS: AndroGel, gabapentin 300 mg t.i.d., oxycodone 10/325 at bedtime, Crestor 10 mg, Coumadin 6-7 mg daily, multivitamin, Singulair, Synthroid, clonazepam 1 mg daily and aspirin. PQRS: 1. He has osteoarthritis in his lower extremities. Denies any rheumatoid arthritis. 2. Height is 5 feet 11 inches, weight is 190 and BMI is 26. 3. Vital signs; 120/73, pulse is 60, respirations 14, oxygen sat is 100%. 4. Pain score is 8/10. 5. Denies dizziness, does not need help walking or standing, has not fallen in the last [address] [address] PAIN MANAGEMENT CONSULTATION Name: ENGLISHCARLOS BRAN Room #: REG [facility]#: [id number] Admission: 06/15/19 Attend Phys: Ashley Kaur Discharge: Date of : 50 Report #: [id number] 6. The patient is on Coumadin, does not take medicine for hypertension. 7. Opioid therapy is greater than 6 weeks; therefore, an opioid signed contract is on the chart. Risk assessment tool is high. Functional assessment is 40/70. 8. Recreational drug use, he denies. He is not a smoker and occasionally drinks alcohol. According to the prescription monitoring system, the patient is filling appropriately for his medications in a timely fashion, taking one oxycodone a day, which places him at 15 morphine mEq per day according to the CDC guidelines. PHYSICAL EXAMINATION: GENERAL: This is a well-developed, well-nourished, well-hydrated 69-year-old gentleman who appears his stated age, placing his current pain score 8/10 today. HEENT: Normocephalic, atraumatic. Extraocular eye muscles are intact. Mucous membranes are moist. NECK: Pain radiates from his occipital area towards the temporal causing a headache. It is tender to touch at the base of his neck. He has radicular symptoms in bilateral arms to his fingers with numbness and tingly. Pain is increased with flexion and extension of his neck. MUSCULOSKELETAL: He moves from sitting to standing position. He ambulates with a rigid gait. He does have pain in his lumbar spine. Deep tendon reflex in his lower extremities are 3-4+. Hypersensitivity noted. ASSESSMENT: 1. Chronic intractable neck pain. 2. Cervical neuralgia with neuropathy. 3. Low back pain. 4. Cervical radiculopathy. 5. Management of high risk medications under terms of written opioid agreement. We reviewed the fact that opiate medications are being used to provide analgesia adequate to support activities of daily living, not attempting to achieve a specific pain score on the 0-10 Visual Analog Scale. The current opiate medications are providing sufficient analgesia to allow the patient to participate in activities of daily living. The patient is not exhibiting any aberrant behavior suggestive of drug diversion. The patient is not having any adverse reactions to medications. The patient is not suffering from daytime somnolence or mental acuity changes. The patient is managing opiate-induced constipation with appropriate xuty-aqa-lqadarx agents and dietary considerations. The patient was counseled on concern for caution with operating a motor vehicle while using opiate medications. PLAN: 1. We discussed treatment options with the patient today. Dr. George was present for most of this discussion. The patient brings a brochure from her [facility] [address] [place] [address] PAIN MANAGEMENT CONSULTATION Name: CARLOS RAUSCH Room #: REG [facility].#: [id number] Admission: 06/15/19 Attend Phys: Ashley Kaur Discharge: Date of : 50 Report #: [id number] waiting room for a spinal cord stimulator. Dr. George does not feel that is the right therapy for him currently. We would like to re-x-ray him and see if there are any changes that have caused his increased pain. His last cervical MRI was in 2016 prior to his cervical fusion. We will order a cervical spine and head MRI without contrast. Based on the findings, we may schedule him for a possible injection. The patient is to call and report after he has had this MRI done, so we may discuss with him further. 2. Dr. George did briefly talk about intrathecal pump that Dr. Uriah Guadalupe could manage and place for this patient. He is on a low dose of opioids, but there are other medications that may help with his rigidity and some of his pain. At this point, it was decided to table that discussion for a later time. 3. We did discuss increasing his opioid use slightly. He is a very active gentleman and currently only taking his opioids at bedtime. He does motorcoach driver basketball. We encouraged him to take half to one tablet prior to being physically active and see if that is beneficial in decreasing some of his pain, also taking it proactively before he is walking, which he does about 4 days a week and see if this also benefits him and reduces some of his pain. We did caution the patient on a possible increase in constipation side effects from these medications. 4. The patient had scripts sent electronically for his oxycodone #90, for today and 4-week release to his [facility]. 5. The patient is seen in collaboration with Dr. Lincoln George who did see the patient as well today. The patient will call after his MRI has been completed for results. <ELECTRONICALLY SIGNED> By: Ashley Kaur 06/16/19 0804 [id number] 0004 Ashley Kaur /nt
== END ==
LOC: PAIN 07:06
DX: M54.5 Low back pain (principal); G89.4 Chronic pain syndrome; M54.2 Cervicalgia; M54.12 Radiculopathy, cervical region; Z79.891 Long term (current) use of opiate analgesic

== ENCOUNTER → 2019-07-20 | Outpatient (CLI) | payer OTHER ==
[~2019-07-20] VITALS: Ht 180.3 cm; Wt 85.6 kg
[2019-07-20 14:08] VITALS: BP 115/74
--- NOTE | 2019-07-20 14:26 | NUR ---
Pain Clinic Assessment: 1. History of Osteoarthritis: Left Lower Extremity History of Rheumatoid Arthritis: Not Applicable 2. Height: 5 ft. 11 in. 180.3 cm. Weight: 188.8 lb. oz. 85.639 kg. Patient's BMI: 26.3 3. Vital Signs: BP: 115/74 Pulse: 63 Resp: 16 Temp: 02 Sat: 97 ECG Mon: 4. Pain Intensity: 6 5. Fall Risk: Dizziness: Y Needs help standing or walking: N Fallen in the last 3 months: N Fall risk comments: 6. Patient on Blood Thinner: Warfarin (Coumadin) 7. History of Hypertension: N 8. Opioid Therapy greater than 6 weeks: Y Opiate Contract Signed: 09/11/17 9. Risk Assessment Tool Provided: 10-high 10. Functional Assessment Tool: 11. Recreational Drug Use: Never Drug Type: Tobacco Use: Never Smoker Tobacco Type: Amount or Packs/day: How Many Years: Alcohol Use: Yes Frequency: Special Occasions Quant:
--- NOTE | 2019-07-21 08:29 | HPC ---
[facility] [address] [place] [address] PAIN MANAGEMENT CONSULTATION Name: CARLOS RAUSCH Room #: REG JOSE Bhargavi#: [id number] Admission: 07/20/19 Attend Phys: Ashley Kaur Discharge: Date of : 50 Report #: [id number] THIS REPORT FOR: //name// CC: Ashley George MD DATE OF SERVICE: 07/20/2019 CHIEF COMPLAINT: Chronic intractable pain. HISTORY OF PRESENT ILLNESS: This is a 69-year-old gentleman who returns to the pain clinic today thinking that he needed a refill of his medications that we give him for his chronic pain. He reports a pain score of 6/10 complaining of multiple pain generators with diffuse pain in his head, neck, shoulders, arms, legs, and low back. He states that it is a constant, sharp, aching pain. He is not sure what causes increase in pain, but he feels that the medications are beneficial and is requesting a refill or possibly an increase of his oxycodone today. The patient does report to me that Dr. Ayoub increased his gabapentin to 1200 mg total daily dose since we had last seen him. The patient also reports that he had started wearing compression hose at all times and feels that this has been beneficial in decreasing some of his edema in his lower extremities. He continues to have about 1+ edema in his left knee. The compression stockings are higtp-eau-mtyi hose. I did question the patient on the MRI. We do not see any results in the computer. The patient did not remember being scheduled for an MRI of his head and cervical spine that we had addressed at his previous visit. ALLERGIES: No known drug allergies. CURRENT LIST OF MEDICATIONS: Oxycodone 10/325 t.i.d., testosterone, Neurontin 1200 mg daily, Crestor, Coumadin, multivitamin, Singulair, Synthroid, clonazepam 1 mg at bedtime, aspirin, Ventolin inhaler. PQRS: 1. He has osteoarthritis in his lower extremities. Denies any rheumatoid arthritis. 2. Height 5 feet 11 inches, weight 188, BMI is 26. 3. Vital signs, 115/74, pulse is 63, respirations 16, oxygen sat is 97. 4. Pain score 6/10. 5. Complains of some dizziness, does not need help walking or standing, has not fallen in the last [address] [address] PAIN MANAGEMENT CONSULTATION Name: CARLOS RAUSCH Room #: REG CLI [facility].#: [id number] Admission: 07/20/19 Attend Phys: Ashley Kaur Discharge: Date of : 50 Report #: [id number] 6. The patient is on Coumadin, does not take medicines for hypertension. 7. Opiate therapy is greater than 6 weeks; therefore, an opioid signed contract is on the chart. Risk assessment is high. Functional assessment is 40/70. 8. Recreational drug use, he denies. He is not a smoker and occasionally drinks alcohol. According to the prescription monitoring system, he last filled his medicines in May. He is due to fill his medications today. There is a prescription at the pharmacy that he has not filled. The patient was unaware of this. He thought he had filled almost both of his prescriptions. PHYSICAL EXAMINATION: GENERAL: This is a well-developed, well-nourished, well-hydrated 69-year-old gentleman who appears his stated age. His affect is slightly flat. Placing his pain score at 6/10 today. HEENT: Normocephalic, atraumatic. Extraocular eye muscles are intact. Mucous membranes are moist. NECK: He has pain in his occipital areas of his neck that radiate upward as well as tenderness at the base of his neck. He also has symptoms in his bilateral arms of numbness and tingly that radiate into his hand. MUSCULOSKELETAL: He moves from sitting to standing without any difficulty. He has pain and tenderness in his lumbosacral area. 1+ edema noted in his left knee, compression stockings bilaterally. Does have edema in his feet and in his toes of his left foot. ASSESSMENT: 1. Chronic intractable neck pain. 2. Cervical neuralgia with neuropathy. 3. Low back pain. 4. Cervical radiculopathy. 5. Occipital pain. 6. Management of high risk medications under terms of written opioid agreement. PLAN: 1. We discussed treatment options with the patient today. Dr. George was present for part of this discussion as well as we spoke with his . The patient had forgotten about an MRI that we scheduled of his cervical spine and head due to symptoms that he had been having of ongoing headaches and increased pain of his cervical spine. We will reorder this procedure and schedule this prior to the patient leaving and make a followup appointment with Dr. Lincoln George in a month to go over the findings. 2. I explained to the patient there is a prescription to be filled at the pharmacy. We did verify this with the pharmacy and have them filled. The patient will have his oxycodone 10/325 to take up to [address] George and myself did encourage the patient to take the lowest most effective dose due to the fact that he is taking clonazepam and gabapentin. We are worried about [address] [place] [address] PAIN MANAGEMENT CONSULTATION Name: CARLOS RAUSCH Room #: REG [facility].#: [id number] Admission: 07/20/19 Attend Phys: Ashley Kaur Discharge: Date of : 50 Report #: [id number] the polypharmacy and the side effects of mental acuity and it can make him sleepy as well. The patient verbalizes understanding. He will try to take the lowest most effective dose of his opioids. 3. 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 The patient feels that he does sleep well most nights getting about 7 hours of sleep a day on average. The patient denies any problems with constipation from his opioids. 4. The patient will return to see Dr. Lincoln George again who collaborated care today. <ELECTRONICALLY SIGNED> By: Ashley Kaur 07/21/19 0829 1619 2219 Ashley Kaur /pierce
== END ==
LOC: PAIN 07:05
DX: G89.4 Chronic pain syndrome (principal); M54.5 Low back pain; M54.12 Radiculopathy, cervical region; Z79.891 Long term (current) use of opiate analgesic

== ENCOUNTER → 2019-07-28 | Outpatient (CLI) | payer OTHER | LOC: MRI 06-22 15:59 | DX: I67.82 Cerebral ischemia (principal); M47.22 Other spondylosis with radiculopathy, cervical region; M48.02 Spinal stenosis, cervical region ==

== ENCOUNTER → 2019-08-17 | Outpatient (CLI) | payer OTHER ==
[~2019-08-17] VITALS: Ht 180.3 cm; Wt 86.0 kg
[~2019-08-17] MED LIST changes: +ANDROGEL75 GM TOP
--- NOTE | ~2019-08-17 | HPC ---
[facility] [address] [address] PAIN MANAGEMENT CONSULTATION Name: CARLOS RAUSCH Room #: REG [facility] Rajesh.#: [id number] Admission: 08/17/19 Attend Phys: Lincoln George MD Discharge: Date of : 50 Report #: [id number] THIS REPORT FOR: cc: Shaji Ayoub MD, Paul Piezas MD Morgan,Lincoln Whitmore MD ~ THIS REPORT FOR: //name// CC: SHAJI George DATE OF SERVICE: 08/17/2019 Followup visit for chronic headaches, cervicalgia, tremors. The patient returns to clinic today with his , Mely. They are here today to discuss the MRIs that I ordered. We discussed first cervical MRI. He has had an anterior cervical diskectomy and fusion at C3-C4 which looks good without any significant osteophytic ridging. No significant spinal canal stenosis, marked improvement over that prior to surgery. The rest of the spine also looks good without significant central stenosis, but there is some lateral recess stenosis at C5-C6 due to a prominent posterior osteophyte complex and joint hypertrophic degenerative change. He has no C6 radicular symptoms, however. MRI has shown some progression from years back. Although I do not have that report. Both patient and his Mely remember that they were told that there was an unusual shadow in the MRI that was to be followed. Followup MRI apparently was not performed. I did review back through the records dating to 2012 and there was a ggnb-gt-[id number] nonspecific white matter change, possibly related to microvascular ischemia. That MRI was done at [facility] and I do not know if the 2 have been compared. By description, the prior lesion was small. The patient references about the size of a quarter, this is 3.5 cm and bilateral. I am unsure if this is responsible for his subjective symptoms. He also has dizziness. Medications have indeed provided relief for him and he has been taking oxycodone 10/325 two to three times a day. Three is better, because of the duration of response. He is also on gabapentin capsules and Dr. Ayoub has prescribed clonazepam. I have recommended that he minimize the use of the clonazepam only for anxiety. PQRS: Positive for osteoarthritis of the left knee, BMI of 26.5, blood pressure 123/71, heart rate 60, respirations 16, O2 sat 100, pain intensity 6/10, mostly in the occiput today. He is on Coumadin and has been treated with anticoagulant for some time. Not hypertensive, nor is he on an antihypertensive. He is on an [facility] [address] [place] [address] PAIN MANAGEMENT CONSULTATION Name: CARLOS RAUSCH Room #: REG [facility] Rajesh.#: [id number] Admission: 08/17/19 Attend Phys: Lincoln George MD Discharge: Date of : 50 Report #: [id number] opioid agreement signed in our clinic last on 08/2017. His risk assessment tool is somewhat high at 6 suggesting we should watch closely and monitor his medications. His Mely will also keep an eye on his medication use. He denies use of tobacco, drinks alcohol occasionally in social setting. He is planning a trip to [place] in October. I see no reason why he cannot go. PHYSICAL EXAMINATION: GENERAL: He is pleasant, alert and oriented. HEENT: Pupils are equal, round, reactive to light. EOMs are intact. Mucous membranes are moist. NECK: Stiff. He has some restrictions in motion from his previous surgery. There is a small scar from his anterior cervical diskectomy and fusion. CHEST: Clear. CARDIAC: Rhythm is regular. MUSCULOSKELETAL: Examination of the extremities reveals a slight tremor. IMPRESSION: 1. Chronic headaches and occipital pain. 2. Chronic cervicalgia. 3. Low back pain. 4. Cervical radiculopathy. 5. Management of high risk medications under terms of an opioid agreement. PLAN: 1. I referred him to a neurologist. He would like to return to the neurologist who he saw at [facility] several years ago to discuss findings. I have asked him to take a copy of his MRI with him to that visit. 2. I will renew his medications at 3 oxycodone 10/325 tablets for an MME of 45. He will carefully use these medicines at the lowest effective dose and safeguard them. I provided him enough medicine to get through the next 3 months and then I will make sure that he has medications for his upcoming trip. Life is short, he needs to take that trip with his and enjoy [place]. We will discuss safe use of medications while traveling overseas at his next appointment in 3 months. We discussed the fact that he is on a benzodiazepine in addition to his opioid medication. The opioids do provide substantial day to day improvement in his pain and function. I want him to stay on them. I would prefer he was not taking his benzodiazepine while using the opioid. He has shown that he can take it safely, but he must carefully safeguard these medications from others per our agreement. [facility] [address] [place] [address] PAIN MANAGEMENT CONSULTATION Name: CARLOS RAUSCH Room #: REG JOSE Rajesh.#: [id number] Admission: 08/17/19 Attend Phys: Lincoln George MD Discharge: Date of : 50 Report #: [id number] Followup visit planned in 3 months. By: [id number] Lincoln George MD /nt
[2019-08-17 11:11] VITALS: BP 123/71
--- NOTE | 2019-08-17 11:30 | NUR ---
Pain Clinic Assessment: 1. History of Osteoarthritis: Left Lower Extremity History of Rheumatoid Arthritis: Not Applicable 2. Height: 5 ft. 11 in. 180.3 cm. Weight: 189.6 lb. oz. 86.002 kg. Patient's BMI: 26.5 3. Vital Signs: BP: 123/71 Pulse: 60 Resp: 16 Temp: 02 Sat: 100 ECG Mon: 4. Pain Intensity: 6 5. Fall Risk: Dizziness: N Needs help standing or walking: N Fallen in the last 3 months: N Fall risk comments: 6. Patient on Blood Thinner: Warfarin (Coumadin) 7. History of Hypertension: N 8. Opioid Therapy greater than 6 weeks: Y Opiate Contract Signed: 09/11/17 9. Risk Assessment Tool Provided: 6 10. Functional Assessment Tool: 11. Recreational Drug Use: Never Drug Type: Tobacco Use: Never Smoker Tobacco Type: Amount or Packs/day: How Many Years: Alcohol Use: Yes Frequency: Quant:
== END ==
LOC: PAIN 06:55
DX: R51 Headache (principal); M54.12 Radiculopathy, cervical region; G89.29 Other chronic pain; M54.81 Occipital neuralgia; R25.1 Tremor, unspecified; Z79.891 Long term (current) use of opiate analgesic; Z79.899 Other long term (current) drug therapy

== ENCOUNTER → 2019-12-07 | Outpatient (CLI) | payer OTHER | LOC: PAIN 07:10 | DX: M17.10 Unilateral primary osteoarthritis, unspecified knee (principal); M54.12 Radiculopathy, cervical region; Z79.899 Other long term (current) drug therapy; Z79.891 Long term (current) use of opiate analgesic ==

== ENCOUNTER → 2020-04-21 | Outpatient (CLI) | payer OTHER ==
[~2020-04-21] VITALS: Ht 180.3 cm; Wt 80.5 kg
[~2020-04-21] MED LIST changes: +MELATONIN3 M1 PO; +PERCOCET 10-321 EAC1 PO
[2020-04-21 11:00] VITALS: BP 119/61
--- NOTE | 2020-04-21 11:43 | NUR ---
Pain Clinic Assessment: 1. History of Osteoarthritis: Left Lower Extremity History of Rheumatoid Arthritis: Not Applicable 2. Height: 5 ft. 11 in. 180.3 cm. Weight: 177.4 lb. oz. 80.468 kg. Patient's BMI: 24.8 3. Vital Signs: BP: 119/61 Pulse: 52 Resp: 14 Temp: 02 Sat: 98 ECG Mon: 4. Pain Intensity: 6 5. Fall Risk: Dizziness: N Needs help standing or walking: N Fallen in the last 3 months: N Fall risk comments: 6. Patient on Blood Thinner: Warfarin (Coumadin) 7. History of Hypertension: N 8. Opioid Therapy greater than 6 weeks: Y Opiate Contract Signed: 09/11/17 9. Risk Assessment Tool Provided: MOD RISK 10. Functional Assessment Tool: 11. Recreational Drug Use: Never Drug Type: Tobacco Use: Never Smoker Tobacco Type: Amount or Packs/day: How Many Years: Alcohol Use: Yes Frequency: Quant:
--- NOTE | 2020-04-22 08:14 | HPC ---
[facility] [address] [address] PAIN MANAGEMENT CONSULTATION Name: CARLOS RAUSCH Room #: REG JOSE Rajesh.#: [id number] Admission: 04/21/20 Attend Phys: Ashley Kaur Discharge: Date of : 50 Report #: [id number] CC: Ashley George MD DATE OF SERVICE: 04/21/2020 CHIEF COMPLAINT: Chronic headache, cervicalgia. HISTORY OF PRESENT ILLNESS: This is a pleasant 70-year-old gentleman who returns to the pain clinic today stating that he is not feeling well. He feels not ill, but reports that he has had increasing headaches in the last 3-4 weeks. Also, just generalized aches and pains, just feeling lethargic. Denies having any COVID symptoms and not having a temperature. The patient does take his temperature several times a day. He does report that his pain score today is 6/10, which he believes is slightly worse than normal. It is an aching, sharp, burning pain in the occipital region of his neck that does radiate into his shoulders. He also does complain of some neuropathic sensation in his feet. He feels that his pain is worse as the day progresses. Overall, he feels that the medication has not been as beneficial as it had been in the past, though he has been trying to limit his oxycodone use to 10/325 two tablets a day. He also has been taking his gabapentin from his primary care doctor twice a day. He is wondering if we have options to see if we can help decrease some of his pain. ALLERGIES: No known drug allergies. CURRENT LIST OF MEDICATIONS: Oxycodone 10/325 p.r.n., melatonin, gabapentin 400 mg b.i.d., Crestor, multivitamin, warfarin, Singulair, Synthroid, clonazepam, aspirin, and Ventolin. PQRS: 1. He has osteoarthritis of his lower extremities. Denies any rheumatoid arthritis. 2. Height is 5 feet 11 inches, weight is 177, BMI is 24. 3. Vital signs 119/61, pulse is 52, respirations 14, oxygen sat is 98%. Pain score 6/10. Fall risk. Denies dizziness, does not need help walking or standing, has not fallen in the last 3 months. The patient is on Coumadin, but does not take medicine for hypertension. His opioid therapy is greater than 6 weeks; therefore, an opioid signed contract is on the chart. Risk assessment is moderate. Functional assessment is 45/70. 4. Recreational drug use, he denies. He is not a smoker and occasionally drinks alcohol. According to the prescription monitoring system, the patient is filling appropriately in a timely fashion. His morphine milliequivalent according to the CDC, if he takes his maximum dose, is 45. He does take a benzodiazepine of clonazepam once nightly and has been stable on this medication for quite some time. PHYSICAL EXAMINATION: GENERAL: This is alert and orientated, slightly depressed, well-hydrated, well-nourished 70-year-old gentleman, who appears his stated age, placing his current pain score at 6/10. HEENT: Pupils equal, round and reactive to light. Mucous membranes are moist. He is wearing a mask. NECK: Has restrictions in motion from previous surgery with a well-healed scar present. Pain is increased with lateral motions. Pain is also in the occipital area that radiates upward to his frontal region. MUSCULOSKELETAL: Upper and lower extremity strength is symmetrical at 5/5. Does have a slight tremor in his upper extremities and numbness present in his bilateral feet. IMPRESSION: 1. Chronic cervicalgia. 2. Chronic headache and occipital pain. 3. Low back pain. 4. Cervical radiculopathy. 5. Management of high risk medications under terms of written opioid agreement. 6. Depression. We reviewed the fact that opiate medications are being used to provide analgesia adequate to support activities of daily living, not attempting to achieve a specific pain score on the 0-10 Visual Analog Scale. The current opiate medications are providing sufficient analgesia to allow the patient to participate in activities of daily living. The patient is not exhibiting any aberrant behavior suggestive of drug diversion. The patient is not having any adverse reactions to medications. The patient is not suffering from daytime somnolence or mental acuity changes. The patient is managing opiate-induced constipation with appropriate [id number]-pwtnqdz agents and dietary considerations. The patient was counseled on concern for caution with operating a motor vehicle while using opiate medications. PLAN: 1. We discussed treatment options with the patient today. The patient feels that his pain has slowly been increasing over the past month. Per his report, he has been taking 400 gabapentin twice a day. It appears that Dr. Ayoub allow him 400 mg 3 times a day. I encouraged him to increase this taking his third dose in the middle of the day for 1 week to see if this is beneficial in reducing some of his pain. If not, I encouraged him then to restart his oxycodone 10 mg in the morning, 5 mg midday and 10 mg at night to see if this is reducing any of his pain. If after a few weeks, his pain is not improving, he is instructed to call our office. We may make adjustments at that time in his medications. 2. I did briefly discuss with him Cymbalta. I feel this medication would be beneficial. Possibly in helping with some of his depression as well as his neuropathic symptoms. We would start him on a very low dose and see if that is beneficial and see if it will be helpful twofold. 3. We did discuss his AndroGel that Dr. Lincoln George had prescribed him in the past. The patient has been reluctant to use this. He is afraid of having the medication on his or his grandchildren with accidentally come in contact with it. I did discuss that it does come in an injection form that is not something out office typically prescribe, but to discuss that with his primary care doctor. I believe he could possibly be experiencing low testosterone levels and that is why he is feeling poorly with lack of energy. The patient verbalizes understanding. He will speak with them next week. 4. The patient will return in 3 months to see us regarding medications, but will be available by phone if he needs to contact us soon for adjustments with oxycodone or adding Cymbalta. The patient is seen today in collaboration with Dr. Lincoln George. <ELECTRONICALLY SIGNED> By: Ashley Kaur 04/22/20 0814 [id number] Ashley Kaur /nt
== END ==
LOC: PAIN 06:53
PROVIDERS: ATTEND Clinical Nurse Specialist Adult Health
DX: M54.16 Radiculopathy, lumbar region (principal); M54.12 Radiculopathy, cervical region; G89.29 Other chronic pain; F32.9 Major depressive disorder, single episode, unspecified; Z79.899 Other long term (current) drug therapy

== ENCOUNTER → 2020-08-25 | Outpatient (CLI) | payer OTHER ==
[~2020-08-25] VITALS: Ht 180.3 cm; Wt 82.3 kg
[2020-08-25 09:22] VITALS: BP 124/75
--- NOTE | 2020-08-25 09:32 | NUR ---
Pain Clinic Assessment: 1. History of Osteoarthritis: Left Lower Extremity SPINE KNEES NOT SURE WHERE ELSE HANDS History of Rheumatoid Arthritis: Not Applicable UNSURE-MOTHER HAD IT 2. Height: 5 ft. 11 in. 180.3 cm. Weight: 181.4 lb. oz. 82.283 kg. Patient's BMI: 25.3 3. Vital Signs: BP: 124/75 Pulse: 59 Resp: 18 Temp: 02 Sat: 100 ECG Mon: 4. Pain Intensity: 4 5. Fall Risk: Dizziness: N Needs help standing or walking: N Fallen in the last 3 months: N Fall risk comments: 6. Patient on Blood Thinner: Warfarin (Coumadin) 7. History of Hypertension: N 8. Opioid Therapy greater than 6 weeks: Y Opiate Contract Signed: 09/11/17 9. Risk Assessment Tool Provided: MOD RISK 10. Functional Assessment Tool: 11. Recreational Drug Use: Never Drug Type: Tobacco Use: Never Smoker Tobacco Type: Amount or Packs/day: How Many Years: Alcohol Use: Yes Frequency: Special Occasions Quant:
--- NOTE | 2020-08-25 13:09 | HPC ---
[facility] [address] [address] PAIN MANAGEMENT CONSULTATION Name: CARLOS RAUSCH Room #: REG JOSE Carlos.#: [id number] Admission: 08/25/20 Attend Phys: Ashley Kaur Discharge: Date of : 50 Report #: [id number] THIS REPORT FOR: cc: Shaji Ayoub MD, Paul Piezas MD Hocker,Ashley BRAND ~ DATE OF SERVICE: 08/25/2020 CHIEF COMPLAINT: Cervicalgia, peripheral neuropathy. HISTORY OF PRESENT ILLNESS: This is a pleasant 70-year-old who has a flat affect that is here requesting refills of his oxycodone. We have seen him last about 4 months ago and he reports during that time, he did have a period where his pain was significantly better, requiring less medications. 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 The patient reports most of his pain is in his neck and lower back and then significant neuropathy that he feels is worsening in his feet, especially at bedtime. He reports his pain is a burning, sharp pain with aching at times, rating it a 4/10 today. He believes that too much activity does increase his pain as well as crossing his feet aggravates his neuropathy and his pain progresses as the day wears on. Overall, he feels the oxycodone has been beneficial as well as resting. The patient does report that he received his first COVID vaccine and is waiting for his second one. 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 ALLERGIES: No known drug allergies. CURRENT LIST OF MEDICATIONS: Oxycodone 10/325 p.r.n., melatonin, gabapentin 400 mg b.i.d., Crestor, Coumadin, multivitamin, Singulair, Synthroid, clonazepam, aspirin, and Ventolin inhaler. PQRS: 1. He has osteoarthritic changes in his spine, knees and hands. Denies any rheumatoid arthritis. 2. Height is 5 feet 11 inches, weight is 181, BMI is 25. 3. Vital signs 124/75, pulse is 59, respirations 18, oxygen sat is 100. 4. Pain score is 4/10. 5. Denies dizziness, does not need help walking, has not fallen in the last 3 months. 6. The patient is on warfarin and on no hypertension medicines. 7. Opioid therapy is greater than 6 weeks; therefore, an opioid signed contract is on the chart. Risk assessment is moderate. Functional assessment is 45/70. 8. Recreational drug use, he denies. He is not a smoker and occasionally [address] [address] PAIN MANAGEMENT CONSULTATION Name: CARLOS RAUSCH [facility] [id number] Admission: 08/25/20 Attend Phys: Ashley Kaur Discharge: Date of : 50 Report #: [id number] drinks alcohol. According to the prescription monitoring system, he is filling appropriately. He does take a benzodiazepine as well and is closely monitored. His morphine milliequivalent if he takes all of his medication is 45 MME, well below the CDC guidelines. PHYSICAL EXAMINATION: GENERAL: This is alert and orientated 70-year-old gentleman with a flat affect, reporting his pain score at 4/10 today. He is a good historian. HEENT: Normocephalic, atraumatic. Extraocular eye muscles are intact. Mucous membranes are moist. He is wearing a mask. NECK: Pain is increased with lateral motions. He does have limited range of motion due to previous surgery and has a well-healed scar. MUSCULOSKELETAL: Upper and lower extremity strength is symmetrical at 5/5, numbness, tingly in his bilateral feet, it has worsened since last appointment. Slight discoloration on his heels. IMPRESSION: 1. Chronic cervicalgia. 2. Chronic headache and occipital pain. 3. Low back pain. 4. Cervical radiculopathy. 5. Peripheral neuropathy. 6. Depression. 7. Management of high risk medications under terms of written opioid agreement. PLAN: 1. We discussed treatment options with the patient today. We discussed Cymbalta again, which the patient had been on in the past to see if this may help some of his neuropathic symptoms. The patient is unsure if he would like to start a new medication. He had also been on Lyrica in the past for his neuropathy as well as higher dose of gabapentin. It was decided that we would try to increase his gabapentin to 400 in the morning, 400 around 5:00 p.m,and then 400 at bedtime. If this makes him too drowsy, then he may alter his second dose to evening to see if this is more beneficial. 2.I encouraged the patient to discuss his neuropathy with his primary care doctor to see if he has any vascular issues related to the discoloring of his legs or consider an EMG. 3. We will continue him on his oxycodone 10. The patient does use these sparingly and has taken them appropriately. Scripts sent for [address] [address] PAIN MANAGEMENT CONSULTATION Name: CARLOS RAUSCH Room #: REG JOSE Burk#: [id number] Admission: 08/25/20 Attend Phys: Ashley Kaur Discharge: Date of : 50 Report #: [id number] 4. The patient's case discussed with Dr. Lincoln George who collaborated care today. The patient will return in 3-4 months as needed. <ELECTRONICALLY SIGNED> By: Ashley Kaur 08/25/20 1309 [id number] [id number] Ashley Kaur /nt
== END ==
LOC: PAIN 07:47
PROVIDERS: ATTEND Clinical Nurse Specialist Adult Health
DX: G62.9 Polyneuropathy, unspecified (principal); M54.12 Radiculopathy, cervical region; R51.9 Headache, unspecified; G89.29 Other chronic pain; F32.9 Major depressive disorder, single episode, unspecified; Z79.891 Long term (current) use of opiate analgesic; Z79.899 Other long term (current) drug therapy; Z79.01 Long term (current) use of anticoagulants

== ENCOUNTER → 2021-01-05 | Outpatient (CLI) | payer OTHER ==
[~2021-01-05] VITALS: Ht 170.2 cm; Wt 81.2 kg
[2021-01-05 09:12] VITALS: BP 104/72
--- NOTE | 2021-01-05 09:29 | NUR ---
Pain Clinic Assessment: 1. History of Osteoarthritis: Left Lower Extremity SPINE KNEES NOT SURE WHERE ELSE HANDS History of Rheumatoid Arthritis: Not Applicable UNSURE-MOTHER HAD IT 2. Height: 5 ft. 7 in. 170.2 cm. Weight: 179.0 lb. oz. 81.194 kg. Patient's BMI: 28.0 3. Vital Signs: BP: 104/72 Pulse: 56 Resp: 14 Temp: 02 Sat: 100 ECG Mon: 4. Pain Intensity: 7-8 5. Fall Risk: Dizziness: N Needs help standing or walking: N Fallen in the last 3 months: N Fall risk comments: 6. Patient on Blood Thinner: Warfarin (Coumadin) 7. History of Hypertension: N 8. Opioid Therapy greater than 6 weeks: Y Opiate Contract Signed: 09/11/17 9. Risk Assessment Tool Provided: MOD RISK 10. Functional Assessment Tool: 11. Recreational Drug Use: Never Drug Type: Tobacco Use: Never Smoker Tobacco Type: Amount or Packs/day: How Many Years: Alcohol Use: Yes Frequency: Quant:
== END ==
LOC: PAIN 06:52
PROVIDERS: ATTEND Anesthesiology Pain Medicine
DX: G89.29 Other chronic pain (principal); M54.12 Radiculopathy, cervical region; G95.89 Other specified diseases of spinal cord; R51.9 Headache, unspecified; F32.9 Major depressive disorder, single episode, unspecified; F10.10 Alcohol abuse, uncomplicated; Z79.891 Long term (current) use of opiate analgesic; Z79.899 Other long term (current) drug therapy

== ENCOUNTER → 2021-03-02 | Outpatient (CLI) | payer OTHER ==
[~2021-03-02] VITALS: Ht 170.2 cm; Wt 82.0 kg
[~2021-03-02] MED LIST changes: +DESYREL150 MG PO
[2021-03-02 10:13] VITALS: BP 131/77
--- NOTE | 2021-03-02 10:28 | NUR ---
Pain Clinic Assessment: 1. History of Osteoarthritis: Left Lower Extremity SPINE KNEES NOT SURE WHERE ELSE HANDS History of Rheumatoid Arthritis: Not Applicable UNSURE-MOTHER HAD IT 2. Height: 5 ft. 7 in. 170.2 cm. Weight: 180.8 lb. oz. 82.010 kg. Patient's BMI: 28.3 3. Vital Signs: BP: 131/77 Pulse: 51 Resp: 14 Temp: 02 Sat: 100 ECG Mon: 4. Pain Intensity: 6 5. Fall Risk: Dizziness: N Needs help standing or walking: N Fallen in the last 3 months: N Fall risk comments: 6. Patient on Blood Thinner: Warfarin (Coumadin) 7. History of Hypertension: N 8. Opioid Therapy greater than 6 weeks: Y Opiate Contract Signed: 09/11/17 9. Risk Assessment Tool Provided: MOD RISK 10. Functional Assessment Tool: 11. Recreational Drug Use: Never Drug Type: Tobacco Use: Never Smoker Tobacco Type: Amount or Packs/day: How Many Years: Alcohol Use: Yes Frequency: Special Occasions Quant: 2
== END | disposition home or self-care (01) ==
LOC: PAIN 09:10
PROVIDERS: ATTEND Anesthesiology Pain Medicine
DX: M79.18 Myalgia, other site (principal); G95.89 Other specified diseases of spinal cord; Z98.890 Other specified postprocedural states; M19.90 Unspecified osteoarthritis, unspecified site; Z79.899 Other long term (current) drug therapy

== ENCOUNTER → 2021-07-03 | Outpatient (CLI) | payer OTHER ==
[~2021-07-03] VITALS: Ht 170.2 cm; Wt 85.5 kg
[2021-07-03 09:26] VITALS: BP 115/72
--- NOTE | 2021-07-03 09:37 | NUR ---
Pain Clinic Assessment: 1. History of Osteoarthritis: Left Lower Extremity SPINE KNEES HANDS History of Rheumatoid Arthritis: Not Applicable 2. Height: 5 ft. 7 in. 170.2 cm. Weight: 188.4 lb. oz. 85.458 kg. Patient's BMI: 29.5 3. Vital Signs: BP: 115/72 Pulse: 57 Resp: 14 Temp: 02 Sat: 98 ECG Mon: 4. Pain Intensity: 6-7 5. Fall Risk: Dizziness: N Needs help standing or walking: N Fallen in the last 3 months: N Fall risk comments: 6. Patient on Blood Thinner: Warfarin (Coumadin) 7. History of Hypertension: N 8. Opioid Therapy greater than 6 weeks: Y Opiate Contract Signed: 09/11/17 9. Risk Assessment Tool Provided: MOD RISK 10. Functional Assessment Tool: 11. Recreational Drug Use: Never Drug Type: Tobacco Use: Never Smoker Tobacco Type: Amount or Packs/day: How Many Years: Alcohol Use: Yes Frequency: Special Occasions Quant: 1
== END ==
LOC: PAIN 08:36
PROVIDERS: ATTEND Clinical Nurse Specialist Adult Health
DX: G89.29 Other chronic pain (principal); M79.18 Myalgia, other site; M54.2 Cervicalgia; R51.9 Headache, unspecified; F34.89 Other specified persistent mood disorders; Z79.82 Long term (current) use of aspirin; Z79.01 Long term (current) use of anticoagulants; Z79.899 Other long term (current) drug therapy

== ENCOUNTER → 2021-07-06 | Outpatient (CLI) | payer OTHER ==
[~2021-07-06] VITALS: Ht 170.2 cm; Wt 85.5 kg
[2021-07-06 09:33] VITALS: BP 113/71
--- NOTE | 2021-07-06 09:38 | NUR ---
Pain Clinic Assessment: 1. History of Osteoarthritis: Left Lower Extremity SPINE KNEES HANDS History of Rheumatoid Arthritis: Not Applicable 2. Height: 5 ft. 7 in. 170.2 cm. Weight: 188.4 lb. oz. 85.458 kg. Patient's BMI: 29.5 3. Vital Signs: BP: 113/71 Pulse: 58 Resp: 16 Temp: 02 Sat: 99 ECG Mon: 4. Pain Intensity: 7 5. Fall Risk: Dizziness: N Needs help standing or walking: N Fallen in the last 3 months: N Fall risk comments: 6. Patient on Blood Thinner: Warfarin (Coumadin) 7. History of Hypertension: N 8. Opioid Therapy greater than 6 weeks: Y Opiate Contract Signed: 09/11/17 9. Risk Assessment Tool Provided: low-0 10. Functional Assessment Tool: 11. Recreational Drug Use: Never Drug Type: Tobacco Use: Never Smoker Tobacco Type: Amount or Packs/day: How Many Years: Alcohol Use: Yes Frequency: Special Occasions Quant: 3
== END | disposition home or self-care (01) ==
LOC: PAIN 07:43
PROVIDERS: ATTEND Anesthesiology Pain Medicine
DX: M79.18 Myalgia, other site (principal); G89.29 Other chronic pain; M54.2 Cervicalgia; M17.11 Unilateral primary osteoarthritis, right knee; M19.90 Unspecified osteoarthritis, unspecified site; Z98.890 Other specified postprocedural states; Z79.891 Long term (current) use of opiate analgesic; Z79.899 Other long term (current) drug therapy; Z79.01 Long term (current) use of anticoagulants

== ENCOUNTER → 2021-08-07 | Outpatient (CLI) | payer OTHER ==
[~2021-08-07] VITALS: Ht 170.2 cm; Wt 81.0 kg
[2021-08-07 10:21] VITALS: BP 120/76
--- NOTE | 2021-08-07 10:44 | NUR ---
Pain Clinic Assessment: 1. History of Osteoarthritis: Left Lower Extremity SPINE KNEES HANDS History of Rheumatoid Arthritis: Not Applicable 2. Height: 5 ft. 7 in. 170.2 cm. Weight: 178.6 lb. oz. 81.012 kg. Patient's BMI: 28.0 3. Vital Signs: BP: 120/76 Pulse: 60 Resp: 16 Temp: 02 Sat: 97 ECG Mon: 4. Pain Intensity: 6 to 8 5. Fall Risk: Dizziness: N Needs help standing or walking: N Fallen in the last 3 months: N Fall risk comments: 6. Patient on Blood Thinner: Warfarin (Coumadin) 7. History of Hypertension: N 8. Opioid Therapy greater than 6 weeks: Y Opiate Contract Signed: 09/11/17 9. Risk Assessment Tool Provided: low-0 10. Functional Assessment Tool: 11. Recreational Drug Use: Never Drug Type: Tobacco Use: Never Smoker Tobacco Type: Amount or Packs/day: How Many Years: Alcohol Use: Yes Frequency: Weekly Quant: 2
== END | disposition home or self-care (01) ==
LOC: PAIN 07-31 12:05
PROVIDERS: ATTEND Anesthesiology Pain Medicine
DX: M17.11 Unilateral primary osteoarthritis, right knee (principal); M25.561 Pain in right knee; M25.462 Effusion, left knee; G89.29 Other chronic pain; M19.90 Unspecified osteoarthritis, unspecified site; Z98.890 Other specified postprocedural states; Z79.899 Other long term (current) drug therapy; Z96.652 Presence of left artificial knee joint; Z79.01 Long term (current) use of anticoagulants